=== PATIENT | male | born 1955 | race Caucasian/White ===

== ENCOUNTER 2018-11-20 04:10 | Emergency (ER) | END 2018-11-20 08:40 | disposition home or self-care (01) | DX: S01.511A Laceration without foreign body of lip, initial encounter (principal); S40.022A Contusion of left upper arm, initial encounter; L08.9 Local infection of the skin and subcutaneous tissue, unspecified; R07.81 Pleurodynia; M54.2 Cervicalgia; E11.9 Type 2 diabetes mellitus without complications; Z86.718 Personal history of other venous thrombosis and embolism; Z79.84 Long term (current) use of oral hypoglycemic drugs; Z79.4 Long term (current) use of insulin; W01.198A Fall on same level from slipping, tripping and stumbling with subsequent striking against other object, initial encounter; Y93.89 Activity, other specified; Y92.89 Other specified places as the place of occurrence of the external cause; Y99.8 Other external cause status | CPT/HCPCS: 36415; 71250; 72125; 80048; 80076; 85025; 90471; 90715; 96365; 96367; 96375; 99284; J1170; J2270; J2405; J3370; J3490; J7060 ==

== ENCOUNTER 2018-11-25 03:00 | Emergency (ER) | payer SELFPAY ==
[~2018-11-25] VITALS: Ht 177.8 cm; Wt 104.3 kg
[~2018-11-25 03:00] MED LIST: GLIPIZIDE PO; HYDROCHLOROTHIAZIDE PO; INVOKANA PO; LANTUS SQ; PREG50CA PO; ZOLP10TA2 PO
--- NOTE | 2018-11-25 03:42 | NUR ---
Patient discharged to home in stable conditon. Written and verbal after care instructions given. Patient verbalizes understanding of instructions. Patient ambulated out of ER with steady gait. Patient instructed to return to department after 5-7 days for removal of gregorio.
[2018-11-25 03:44] VITALS: BP 124/80
== END 2018-11-25 03:42 | disposition home or self-care (01) ==
LOC: ER 03:01
DX: S01.01XA Laceration without foreign body of scalp, initial encounter (principal); E11.9 Type 2 diabetes mellitus without complications; Z79.4 Long term (current) use of insulin; Z79.899 Other long term (current) drug therapy; X58.XXXA Exposure to other specified factors, initial encounter; Y93.89 Activity, other specified; Y92.89 Other specified places as the place of occurrence of the external cause; Y99.8 Other external cause status
CPT/HCPCS: A4217; A4663

== ENCOUNTER 2018-12-02 18:22 | Emergency (ER) | payer MEDICARE ==
[~2018-12-02] VITALS: Ht 177.8 cm; Wt 104.3 kg
--- NOTE | 2018-12-02 19:05 | NUR ---
RECEIVED PT SITTING IN BED COMFORTABLY. PT A/OX4, PRESENTS TO THE ER FOR REMOVAL OF 6 SHILOH ON R SCALP. DENIES PAIN, C/P, SOB, N/V/D, DIZZINES, HEADACHE. STAPLE SITE IS NON-EDEMATOUS, NO DRAINAGE, NO BLEEDING NOTED.
--- NOTE | 2018-12-02 19:27 | NUR ---
6 SHILOH REMOVED. SKIN REMAINS INTACT.
--- NOTE | 2018-12-02 19:27 | NUR ---
Patient discharged to home in stable conditon. Written and verbal after care instructions given. Patient verbalizes understanding of instructions. ALL BELONGINGS W/ PT. PT SELF-AMBULATED W/O DIFFICULTY.
[2018-12-02 19:29] VITALS: BP 128/76
== END 2018-12-02 19:29 | disposition home or self-care (01) ==
LOC: ER 18:24
DX: S01.01XD Laceration without foreign body of scalp, subsequent encounter (principal); E11.9 Type 2 diabetes mellitus without complications; Z79.899 Other long term (current) drug therapy; Z79.4 Long term (current) use of insulin; X58.XXXD Exposure to other specified factors, subsequent encounter
CPT/HCPCS: A4663

== ENCOUNTER 2025-01-29 12:27 | Inpatient (IN) | payer MEDICARE, OTHER ==
[~2025-01-29] VITALS: Ht 177.8 cm; Wt 109.6 kg
[2025-01-29 00:49] VITALS: BP 112/49; TEMP 97.9; O2SAT 96
[2025-01-29 13:59] LABS: BASOPHILS % (AUTO) 0.4 % (0.0-2.0); DIFFERENTIAL COMMENT 0; EOSINOPHILS # (AUTO) 0.3 K/uL (0.0-0.7); EOSINOPHILS % (AUTO) 2.7 % (0.0-7.0); HEMATOCRIT 41.3 % (36.7-47.1); HEMOGLOBIN 13.5 g/dL (12.5-16.3); LYMPHOCYTES # (AUTO) 3.4 K/uL (0.8-4.8); LYMPHOCYTES % (AUTO) 26.6 % (20.5-51.5); MEAN CORPUSCULAR HGB CONC 33 g/dL (32.5-36.3); MEAN CORPUSCULAR VOLUME 88.7 fL (73.0-96.2); MONOCYTES # (AUTO) 1.9 K/uL (0.1-1.30); MONOCYTES % (AUTO) 14.8 % (0.0-11.0); NEUTROPHILS % (AUTO) 55.5 % (38.5-71.5); PLATELET COUNT (AUTO) 260 K/uL (152-348); RED BLOOD CELL COUNT(AUTO) 4.66 MIL/uL (4.06-5.63); RED CELL DISTRIBUTION WIDTH 13.7 % (12.1-16.2); WHITE BLOOD COUNT (AUTO) 12.7 K/uL (3.6-10.2)
[2025-01-29 14:02] LABS: *CLARITY,URINE CLEAR (CLEAR); *COLOR,URINE YELLOW (YELLOW); *KETONES,URINE TRACE (NEGATIVE); *PROTEIN,URINE 2+ (NEGATIVE); *UROBILINOGEN,URINE 0.2 E.U./dl (NORMAL); LEUKOCYTE ESTERASE ,URINE NEGATIVE (NEGATIVE); NITRITE, URINE NEGATIVE (NEGATIVE)
[2025-01-29 14:03] LABS: *BILIRUBIN,URIN 1+ (NEGATIVE); *BLOOD, URINE TRACE (NEGATIVE); UGLUCOSE 1+ (NEGATIVE)
[2025-01-29 14:06] LABS: ALANINE AMINOTRANSFERASE 11 U/L (16-63); ALBUMIN 3.4 g/dL (3.4-5.0); ALKALINE PHOSPHATASE 130 U/L (50-136); ASPARTATE AMINOTRANSFERASE 8 U/L (15-37); BILIRUBIN,DIRECT 0.1 mg/dL (0.0-0.2); BILIRUBIN,TOTAL 0.6 mg/dL (0.2-1.0); CALCIUM 8.9 mg/dL (8.5-10.1); CARBON DIOXIDE 14 mmol/L (21-32); CHLORIDE 100 mmol/L (98-107); GLUCOSE 210 mg/dL (74-106); SODIUM SERUM 130 mmol/L (136-145); TOTAL PROTEIN, SERUM 7.1 g/dL (6.4-8.2)
[2025-01-29 14:13] LABS: BACTERIA,URINE MODERATE /HPF (NONE SEEN); CALCIUM OXALATE CRYSTALS,UR FEW /HPF (NONE SEEN); RBC,URINE 0-3 /HPF (0-3); SQUAMOUS EPITHELIAL CELL,UR FEW /HPF (NONE SEEN); URINE AMORPHOUS URATE MODERATE /HPF; YEAST,URINE RARE /HPF (NONE SEEN)
[2025-01-29 14:20] LABS: POTASSIUM 6.4 mmol/L (3.5-5.1)
[2025-01-29 14:24] LABS: CREATININE 7.7 mg/dL (0.6-1.3); UREA NITROGEN, BLOOD 110 mg/dL (7-18)
[2025-01-29] MEDS: INSULIN REGULAR, HUMAN 1000 UNIT/10 ML VIAL IV ONE (15:00)
[2025-01-29] MEDS ORDERED: SODIUM POLYSTYRENE SULFONATE 15 G/60 ML LIQUID UDC ONE (15:04)
[2025-01-29] MEDS ORDERED: INSULIN REGULAR, HUMAN 1000 UNIT/10 ML VIAL ONE ×2 (15:09→15:10)
[2025-01-29] MEDS ORDERED: SODIUM BICARBONATE 8.4% 50 MEQ/50 ML DISP.SYRIN IV ONE ×2 (15:09→22:39)
[2025-01-29] MEDS ORDERED: CALCIUM GLUCONATE 1 GM/10 ML VIAL IV ONE (15:15)
[2025-01-29] MEDS: SODIUM BICARBONATE 8.4% 50 MEQ/50 ML DISP.SYRIN IV ONE (15:20)
[2025-01-29] MEDS: SODIUM POLYSTYRENE SULFONATE 15 G/60 ML LIQUID UDC PO ONE (15:20)
[2025-01-29] MEDS ORDERED: CALCIUM CHLORIDE 1 GM/10 ML DISP.SYRIN IVP ONE (15:24)
[2025-01-29] MEDS: CALCIUM GLUCONATE IV 1 GM in IV NORMAL SALINE 100 ML IV ONE (15:28)
[2025-01-29] MEDS ORDERED: ROSU40TA PO (16:38)
[2025-01-29] MEDS ORDERED: OLME1TAB16 PO (16:38)
[2025-01-29] MEDS ORDERED: CHOL500062 PO (16:38)
[2025-01-29] MEDS ORDERED: PREG75CA PO (16:38)
[2025-01-29] MEDS ORDERED: DUTA0.5C PO (16:38)
[2025-01-29] MEDS ORDERED: EMPA25TA PO (16:38)
[2025-01-29] MEDS ORDERED: MAGN400C PO (16:38)
[2025-01-29] MEDS ORDERED: NAPR220T66 PO (16:38)
[2025-01-29] MEDS ORDERED: MELA3CAP2 PO (16:38)
[2025-01-29] MEDS ORDERED: RIVA10TA PO (16:38)
[2025-01-29] MEDS ORDERED: METF-440 PO (16:38)
[2025-01-29 18:08] LABS: CALCIUM 9.4 mg/dL (8.5-10.1); CARBON DIOXIDE 17 mmol/L (21-32); CHLORIDE 102 mmol/L (98-107); CREATININE 7.3 mg/dL (0.6-1.3); GLUCOSE 120 mg/dL (74-106); SODIUM SERUM 132 mmol/L (136-145)
[2025-01-29 18:15] LABS: UREA NITROGEN, BLOOD 110 mg/dL (7-18)
[2025-01-29] MEDS ORDERED: ACETAMINOPHEN 325 MG TABLET PO PRN (18:30)
[2025-01-29] MEDS ORDERED: ONDANSETRON 4 MG/2 ML VIAL IV PRN (18:30)
[2025-01-29] MEDS ORDERED: CEFTRIAXONE /D5W 50ML IVPB **ER PYXIS IV ONE (22:40)
[2025-01-29 22:41] VITALS: BP 94/45; TEMP 98.5; O2SAT 98
[2025-01-29 22:45] LABS: CALCIUM 9.1 mg/dL (8.5-10.1); CARBON DIOXIDE 15 mmol/L (21-32); CHLORIDE 102 mmol/L (98-107); CREATININE 7.1 mg/dL (0.6-1.3); GLUCOSE 184 mg/dL (74-106); POTASSIUM 5.9 mmol/L (3.5-5.1); SODIUM SERUM 131 mmol/L (136-145)
[2025-01-29 22:46] LABS: UREA NITROGEN, BLOOD 114 mg/dL (7-18)
[2025-01-29] MEDS: CEFTRIAXONE 1 G in IV DEXTROSE 5% 50 ML IV SCH (23:12)
[2025-01-29] MEDS: ZOLPIDEM 5 MG TABLET PO PRN (23:12)
[2025-01-29] MEDS: SODIUM BICARBONATE 8.4% 50 MEQ in IV 1/2NS 1000 ML 1,000 ML IV PRN (23:13)
[2025-01-29] MEDS: HEPARIN SODIUM,PORCINE 5,000 UNITS/ML VIAL SQ SCH (23:14)
[2025-01-30 02:42] LABS: CALCIUM 8.9 mg/dL (8.5-10.1); CARBON DIOXIDE 17 mmol/L (21-32); CHLORIDE 102 mmol/L (98-107); CREATININE 6.8 mg/dL (0.6-1.3); GLUCOSE 192 mg/dL (74-106); POTASSIUM 5.4 mmol/L (3.5-5.1); SODIUM SERUM 132 mmol/L (136-145)
[2025-01-30 02:43] LABS: UREA NITROGEN, BLOOD 118 mg/dL (7-18)
[2025-01-30 04:43] VITALS: BP 101/64; TEMP 97.8; O2SAT 98
[2025-01-30 06:43] LABS: BASOPHILS % (AUTO) 0.3 % (0.0-2.0); EOSINOPHILS # (AUTO) 0.5 K/uL (0.0-0.7); EOSINOPHILS % (AUTO) 5.5 % (0.0-7.0); HEMOGLOBIN 13.5 g/dL (12.5-16.3); LYMPHOCYTES # (AUTO) 3.2 K/uL (0.8-4.8); LYMPHOCYTES % (AUTO) 31.9 % (20.5-51.5); MEAN CORPUSCULAR HEMOGLOBIN 29.1 uug (23.8-33.4); MEAN CORPUSCULAR HGB CONC 33 g/dL (32.5-36.3); MEAN CORPUSCULAR VOLUME 88.3 fL (73.0-96.2); MONOCYTES # (AUTO) 1.7 K/uL (0.1-1.30); MONOCYTES % (AUTO) 17.2 % (0.0-11.0); NEUTROPHILS # (AUTO) 4.5 K/uL (1.8-8.9); NEUTROPHILS % (AUTO) 45.1 % (38.5-71.5); PLATELET COUNT (AUTO) 252 K/uL (152-348); RED BLOOD CELL COUNT(AUTO) 4.65 MIL/uL (4.06-5.63); RED CELL DISTRIBUTION WIDTH 13.6 % (12.1-16.2)
[2025-01-30 06:52] LABS: DIFFERENTIAL COMMENT 1
[2025-01-30 07:12] LABS: CALCIUM 9.1 mg/dL (8.5-10.1); CARBON DIOXIDE 19 mmol/L (21-32); CHLORIDE 103 mmol/L (98-107); CREATININE 6.4 mg/dL (0.6-1.3); GLUCOSE 181 mg/dL (74-106); HDL CHOLESTEROL 35 mg/dL (40-60); MAGNESIUM 3.3 mg/dL (1.8-2.4); NT-PRO BNP 1258 pg/mL (0-125); PHOSPHOROUS 7.3 mg/dL (2.5-4.9); POTASSIUM 5.1 mmol/L (3.5-5.1); SODIUM SERUM 135 mmol/L (136-145); TRIGLYCERIDES 82 MG/DL (30-150)
[2025-01-30 07:26] LABS: CHOLESTEROL < 50 mg/dL (<200)
[2025-01-30 07:28] LABS: UREA NITROGEN, BLOOD 112 mg/dL (7-18)
[2025-01-30 08:00] VITALS: BP 113/62; TEMP 97.2; O2SAT 100
[2025-01-30 09:22] LABS: EOSINOPHILS % (MANUAL) 6 % (0-8); LYMPHOCYTES % (MANUAL) 32 % (20-40); MONOCYTES % (MANUAL) 17 % (2-10); NEUTROPHILS % (MANUAL) 45 % (42-75)
[2025-01-30 09:23] LABS: PLATELET ESTIMATE ADEQUATE
[2025-01-30 10:41] LABS: CALCIUM 8.7 mg/dL (8.5-10.1); CARBON DIOXIDE 18 mmol/L (21-32); CHLORIDE 104 mmol/L (98-107); GLUCOSE 257 mg/dL (74-106); POTASSIUM 5.4 mmol/L (3.5-5.1); SODIUM SERUM 135 mmol/L (136-145)
[2025-01-30 10:44] LABS: UREA NITROGEN, BLOOD 109 mg/dL (7-18)
[2025-01-30] MEDS ORDERED: INSU300I SQ (11:05)
[2025-01-30] MEDS ORDERED: MELA3TAB41 PO (11:05)
[2025-01-30] MEDS ORDERED: CHOL-35 PO (11:05)
[2025-01-30] MEDS ORDERED: RIVA2.5T PO (11:05)
[2025-01-30 12:00] VITALS: BP 135/54; TEMP 97.8; O2SAT 98
[2025-01-30 15:00] LABS: CALCIUM 8.4 mg/dL (8.5-10.1); CARBON DIOXIDE 19 mmol/L (21-32); CHLORIDE 105 mmol/L (98-107); CREATININE 5.5 mg/dL (0.6-1.3); GLUCOSE 249 mg/dL (74-106); POTASSIUM 5.7 mmol/L (3.5-5.1); SODIUM SERUM 135 mmol/L (136-145)
[2025-01-30 15:02] LABS: UREA NITROGEN, BLOOD 106 mg/dL (7-18)
[2025-01-30 16:00] VITALS: BP 97/50; TEMP 97.2; O2SAT 98
[2025-01-30 18:49] LABS: CARBON DIOXIDE 21 mmol/L (21-32); CHLORIDE 105 mmol/L (98-107); CREATININE 5.5 mg/dL (0.6-1.3); GLUCOSE 264 mg/dL (74-106); POTASSIUM 5.7 mmol/L (3.5-5.1); SODIUM SERUM 136 mmol/L (136-145)
[2025-01-30 19:05] LABS: CALCIUM 8.3 mg/dL (8.5-10.1)
[2025-01-30 19:06] LABS: UREA NITROGEN, BLOOD 105 mg/dL (7-18)
[2025-01-30 20:20] VITALS: BP 110/49; TEMP 97.5; O2SAT 98
[2025-01-30 22:56] LABS: CALCIUM 8.4 mg/dL (8.5-10.1); CARBON DIOXIDE 21 mmol/L (21-32); CHLORIDE 105 mmol/L (98-107); CREATININE 5.1 mg/dL (0.6-1.3); GLUCOSE 212 mg/dL (74-106); POTASSIUM 5.6 mmol/L (3.5-5.1); SODIUM SERUM 137 mmol/L (136-145)
[2025-01-30 22:57] LABS: UREA NITROGEN, BLOOD 103 mg/dL (7-18)
[2025-01-31 07:01] VITALS: BP 97/39; TEMP 98; O2SAT 96
[2025-01-31 08:00] VITALS: BP 111/63; TEMP 97.1; O2SAT 97
[2025-01-31 11:34] VITALS: BP 115/62; TEMP 97.8; O2SAT 98
[2025-01-31 15:30] VITALS: BP 111/59; TEMP 97.9; O2SAT 98
[2025-01-31] MEDS ORDERED: ZOLPIDEM 5 MG TABLET PO PRN (16:15)
[2025-01-31] MEDS: CHOLECALCIFEROL 1,000 UNIT TABLET PO SCH (16:40)
[2025-01-31] MEDS: DUTASTERIDE 0.5 MG CAPSULE PO SCH (16:40)
[2025-01-31 16:42] LABS: BASOPHILS % (AUTO) 0.5 % (0.0-2.0); DIFFERENTIAL COMMENT 0; EOSINOPHILS # (AUTO) 0.3 K/uL (0.0-0.7); EOSINOPHILS % (AUTO) 3.2 % (0.0-7.0); HEMATOCRIT 39.4 % (36.7-47.1); HEMOGLOBIN 13.1 g/dL (12.5-16.3); LYMPHOCYTES # (AUTO) 2.7 K/uL (0.8-4.8); LYMPHOCYTES % (AUTO) 25.7 % (20.5-51.5); MEAN CORPUSCULAR HEMOGLOBIN 29.2 uug (23.8-33.4); MEAN CORPUSCULAR HGB CONC 33 g/dL (32.5-36.3); MEAN CORPUSCULAR VOLUME 87.5 fL (73.0-96.2); MONOCYTES # (AUTO) 1.8 K/uL (0.1-1.30); NEUTROPHILS # (AUTO) 5.6 K/uL (1.8-8.9); NEUTROPHILS % (AUTO) 53.6 % (38.5-71.5); PLATELET COUNT (AUTO) 260 K/uL (152-348); RED CELL DISTRIBUTION WIDTH 13.8 % (12.1-16.2); WHITE BLOOD COUNT (AUTO) 10.5 K/uL (3.6-10.2)
[2025-01-31 16:53] LABS: ALANINE AMINOTRANSFERASE 18 U/L (16-63); ALBUMIN 3.1 g/dL (3.4-5.0); ALKALINE PHOSPHATASE 120 U/L (50-136); ASPARTATE AMINOTRANSFERASE 13 U/L (15-37); BILIRUBIN,TOTAL 0.3 mg/dL (0.2-1.0); CALCIUM 8.6 mg/dL (8.5-10.1); CARBON DIOXIDE 23 mmol/L (21-32); CHLORIDE 105 mmol/L (98-107); CREATININE 4.5 mg/dL (0.6-1.3); GLUCOSE 241 mg/dL (74-106); PHOSPHOROUS 5.9 mg/dL (2.5-4.9); POTASSIUM 5.1 mmol/L (3.5-5.1); SODIUM SERUM 138 mmol/L (136-145); TOTAL PROTEIN, SERUM 6.9 g/dL (6.4-8.2)
[2025-01-31 16:55] LABS: UREA NITROGEN, BLOOD 96 mg/dL (7-18)
[2025-01-31 17:20] LABS: BAND % (MANUAL) 1 % (0-10); EOSINOPHILS % (MANUAL) 4 % (0-8); LYMPHOCYTES % (MANUAL) 30 % (20-40); MONOCYTES % (MANUAL) 13 % (2-10); NEUTROPHILS % (MANUAL) 52 % (42-75); PLATELET ESTIMATE ADEQUATE
[2025-01-31 17:21] LABS: ANISOCYTOSIS 1+; TEAR DROP CELLS OCC
[2025-01-31] MEDS ORDERED: RIVAROXABAN 10 MG TABLET PO SCH (18:00)
[2025-01-31 19:47] VITALS: BP 106/59; TEMP 97.9; O2SAT 97
[2025-01-31] MEDS ORDERED: PREGABALIN 100 MG CAPSULE PO SCH (21:00)
[2025-01-31] MEDS: BLOOD SUGAR DIAGNOSTIC 1 EACH STRIP VI SCH (21:21)
[2025-01-31] MEDS: MELATONIN 3 MG TABLET PO SCH (21:22)
[2025-01-31] MEDS: ATORVASTATIN 40 MG TABLET PO SCH (21:22)
[2025-01-31] MEDS: PREGABALIN 25 MG CAPSULE PO SCH (21:22)
[2025-01-31] MEDS: INSULIN GLARGINE,HUM 300 UNITS/3 ML CARTRIDGE SQ SCH (21:28)
[2025-02-01 04:18] VITALS: BP 109/55; TEMP 98.1; O2SAT 97
[2025-02-01 06:48] LABS: BASOPHILS % (AUTO) 0.3 % (0.0-2.0); EOSINOPHILS # (AUTO) 0.5 K/uL (0.0-0.7); EOSINOPHILS % (AUTO) 4.1 % (0.0-7.0); HEMATOCRIT 39.1 % (36.7-47.1); HEMOGLOBIN 13.2 g/dL (12.5-16.3); LYMPHOCYTES # (AUTO) 2.6 K/uL (0.8-4.8); LYMPHOCYTES % (AUTO) 23.6 % (20.5-51.5); MEAN CORPUSCULAR HEMOGLOBIN 29.2 uug (23.8-33.4); MEAN CORPUSCULAR HGB CONC 34 g/dL (32.5-36.3); MEAN CORPUSCULAR VOLUME 86.6 fL (73.0-96.2); MONOCYTES # (AUTO) 1.6 K/uL (0.1-1.30); MONOCYTES % (AUTO) 14.7 % (0.0-11.0); NEUTROPHILS # (AUTO) 6.4 K/uL (1.8-8.9); NEUTROPHILS % (AUTO) 57.3 % (38.5-71.5); PLATELET COUNT (AUTO) 256 K/uL (152-348); RED BLOOD CELL COUNT(AUTO) 4.51 MIL/uL (4.06-5.63); RED CELL DISTRIBUTION WIDTH 13.5 % (12.1-16.2); WHITE BLOOD COUNT (AUTO) 11.1 K/uL (3.6-10.2)
[2025-02-01 06:59] LABS: CALCIUM 8.9 mg/dL (8.5-10.1); CARBON DIOXIDE 22 mmol/L (21-32); CHLORIDE 109 mmol/L (98-107); CREATININE 3.6 mg/dL (0.6-1.3); GLUCOSE 174 mg/dL (74-106); MAGNESIUM 2.9 mg/dL (1.8-2.4); PHOSPHOROUS 5.8 mg/dL (2.5-4.9); POTASSIUM 5.1 mmol/L (3.5-5.1); SODIUM SERUM 144 mmol/L (136-145)
[2025-02-01 07:01] LABS: DIFFERENTIAL COMMENT 1
[2025-02-01 07:10] LABS: UREA NITROGEN, BLOOD 87 mg/dL (7-18)
[2025-02-01] MEDS ORDERED: DEXTROSE 50% 50 ML DISP.SYRIN IV PRN (10:30)
[2025-02-01] MEDS: BLOOD SUGAR DIAGNOSTIC 1 EACH STRIP VI SCH (11:16)
[2025-02-01] MEDS: INSULIN REGULAR, HUMAN 1000 UNIT/10 ML VIAL SQ PRN (11:19)
[2025-02-01 11:30] VITALS: BP 109/56; TEMP 97.8; O2SAT 98
[2025-02-01 15:23] VITALS: BP 128/51; TEMP 97.8; O2SAT 100
[2025-02-01] MEDS: CEFTRIAXONE 2 G in IV DEXTROSE 5% 100 ML IV SCH (18:00)
[2025-02-01 19:06] VITALS: BP 126/56; TEMP 98.5; O2SAT 96
[2025-02-02 05:11] VITALS: BP 114/60; TEMP 98.1; O2SAT 100
[2025-02-02 07:29] LABS: CALCIUM 8.5 mg/dL (8.5-10.1); CARBON DIOXIDE 26 mmol/L (21-32); CHLORIDE 111 mmol/L (98-107); CREATININE 2.5 mg/dL (0.6-1.3); GLUCOSE 129 mg/dL (74-106); POTASSIUM 4.5 mmol/L (3.5-5.1); SODIUM SERUM 146 mmol/L (136-145); UREA NITROGEN, BLOOD 59 mg/dL (7-18)
[2025-02-02 11:38] VITALS: BP 114/73; TEMP 97.8; O2SAT 99
== END 2025-02-02 13:30 | disposition home or self-care (01) | DRG 683 ==
LOC: ER 12:27 → TELE3 21:47 → TELE-TD3 22:01 → MEDSURG3 01-30 12:48
PROVIDERS: ADMIT Nurse Practitioner Acute Care; ATTEND Nurse Practitioner Acute Care
PROC: 05HC33Z Insertion of Infusion Device into Left Basilic Vein, Percutaneous Approach (ICD-10-PCS; principal; 2025-01-31)
DX: N17.0 Acute kidney failure with tubular necrosis (principal); D68.59 Other primary thrombophilia; E87.1 Hypo-osmolality and hyponatremia; N39.0 Urinary tract infection, site not specified; K52.1 Toxic gastroenteritis and colitis; B96.89 Other specified bacterial agents as the cause of diseases classified elsewhere; T39.395A Adverse effect of other nonsteroidal anti-inflammatory drugs [NSAID], initial encounter; T50.2X5A Adverse effect of carbonic-anhydrase inhibitors, benzothiadiazides and other diuretics, initial encounter; Y92.89 Other specified places as the place of occurrence of the external cause; E87.5 Hyperkalemia; G89.29 Other chronic pain; E11.22 Type 2 diabetes mellitus with diabetic chronic kidney disease; E11.40 Type 2 diabetes mellitus with diabetic neuropathy, unspecified; I12.9 Hypertensive chronic kidney disease with stage 1 through stage 4 chronic kidney disease, or unspecified chronic kidney disease; N18.9 Chronic kidney disease, unspecified; Z79.01 Long term (current) use of anticoagulants; Z79.84 Long term (current) use of oral hypoglycemic drugs; Z86.718 Personal history of other venous thrombosis and embolism; E86.1 Hypovolemia; E66.01 Morbid (severe) obesity due to excess calories; Z68.34 Body mass index [BMI] 34.0-34.9, adult; T50.915D Adverse effect of multiple unspecified drugs, medicaments and biological substances, subsequent encounter; M54.50 Low back pain, unspecified; Z79.899 Other long term (current) drug therapy; R94.31 Abnormal electrocardiogram [ECG] [EKG]; M17.12 Unilateral primary osteoarthritis, left knee
CPT/HCPCS: 36415; 71045; 72110; 76770; 83735; 84100; 84681; 85025; 87086; G0378; J0612; J0696; J1644; J1815; J3490